=== PATIENT | female | born 1960 | race Caucasian/White ===

== ENCOUNTER 2017-09-07 23:05 | Emergency (ER) | payer BC ==
[2017-09-07] MEDS ORDERED: TDAP ADULT 0.5 ML INJ (BOOSTRIX) IM ONE (23:38)
--- NOTE | 2017-09-07 23:38 | EDPHY ---
General Time Seen by Provider: 09/07/17 23:19 Narrative: CHIEF COMPLAINT: Cat bite, cat scratch HISTORY OF PRESENT ILLNESS: Patient presents to the hospital with complaints of cat bites and scratches. She was attempting to break up a fight between 2 cats, 1 of whom belong to a neighbor. The other is unknown to heard directly but reportedly is a house cat of someone a history. She reports being bit in the right hand, scratched or bit in the left hand, and scratched her by in the left calf. Moderately painful. No numbness. No tingling. No difficulty bending or straightening the fingers on the affected areas. This happened less than 30 min ago. Her tetanus is due to be updated later this year. No other associated complaints or modifying factors. REVIEW OF SYSTEMS: Ten systems reviewed and are negative unless otherwise noted in the HPI PCP: Dr. Naima Banda SPECIALISTS: None PAST MEDICAL HISTORY: Uncomplicated medical history. SOCIAL HISTORY: Nonsmoker. Lives here independently with her spouse. FAMILY HISTORY: Noncontributory EXAMINATION General Appearance: Alert, no distress Head: normocephalic, atraumatic Cardiovascular: Regular rate. Symmetric radial pulses 2+. Good signs of perfusion with brisk cap refill in both hands. Neurological: A&O, nonfocal, sensory symmetric. Interossei strength symmetric. No wrist drop Skin: Warm and dry, no rash. Multiple small punctures to the dorsum of the right hand and wrist, left calf and distal popliteal fossa. There is a 1.5 cm v -shaped laceration to the dorsum of the left hand overlying the 2nd metacarpal. No exposure of the extensor tendon. No lacerations to the fingers. No pulsatile bleeding. No foreign body. Extremities: Tenderness in the areas of puncture/laceration. Good signs of perfusion with no flexor or extensor injuries on the left hand or right hand. Full range of motion without deficit. No wrist drop. Excellent strength of the interossei. Psychiatric: Mood and affect normal DIFFERENTIAL DIAGNOSES: Including but not limited to cat bite, cat scratch MDM: 11:30 p.m. Cat bites and scratches to the dorsum of the right hand and wrist, dorsum of the left hand and posterior aspect of the left lower extremity from the popliteal to the calf. This happened less than 30 min ago. Her tetanus is scheduled to be updated later this year, thus we will do a now. She will need empiric antibiotic coverage. I have anesthetize larger wounds and will proceed with copious irrigation. 11:50 p.m. Patient re-evaluated. Her wounds have been irrigated with Betadine and sterile saline. We discussed empiric Augmentin coverage which was started here. We discussed daily wound care. We also discussed that the wound on the dorsum left hand will be loosely closed with Steri-Strips, as she will likely incur infection if we close the wound tightly. We discussed follow up in 48-72 hours for wound re-evaluation and the consideration of possible delayed closure. Likely will not need delayed closure. She is comfortable this plan and discharged home stable condition. SUPERVISION: Patient was independently examined, but I discussed the case with my secondary supervising physician Dr. Peña - History Smoking Status: Never smoked - Objective Vital Signs: Initial Vital Signs Temperature (C) 98.2 F 09/07/17 23:10 Heart Rate 78 09/07/17 23:10 Respiratory Rate 16 09/07/17 23:10 Blood Pressure 132/84 H 09/07/17 23:10 O2 Sat (%) 94 09/07/17 23:10 O2 Delivery Mode Room Air Allergies/Adverse Reactions: No Known Allergies Allergy (Unverified 09/07/17 23:13) Home Medications: Medication Instructions Recorded Amoxicillin/Clavulanate Pot 875 mg PO BID #13 tab 09/08/17 [Augmentin 875 MG TAB (*)] Medications Given: Discontinued Medications Amoxicillin/Clavulanate Potassium (Augmentin 875mg) 875 mg PO EDNOW ONE PRN Reason: Protocol Stop: 09/07/17 23:44 Last Admin: 09/07/17 23:47 Dose: 875 mg Diphtheria/Tetanus/Acell Pertussis (Boostrix) 0.5 ml IM .ONCE ONE Stop: 09/07/17 23:39 Last Admin: 09/07/17 23:47 Dose: 0.5 ml Departure - Departure Disposition: Home, Routine, Self-Care Clinical Impression: Cat bite of left hand Qualifiers: Encounter type: initial encounter Qualified Code(s): S61.452A - Open bite of left hand, initial encounter Cat bite of right hand Qualifiers: Encounter type: initial encounter Qualified Code(s): S61.451A - Open bite of right hand, initial encounter Cat bite of left lower leg Qualifiers: Encounter type: initial encounter Qualified Code(s): S81.852A - Open bite, left lower leg, initial encounter Condition: Good Instructions: Amoxicillin/Clavulanate Potassium (By mouth), Animal Bite (ED) Additional Instructions: 1. Daily wound care with a antibacterial wash twice daily 2. Contact primary care physician Saturday morning for re-evaluation at 48-72 hours 3. Return here for any redness, streaking, fever, difficulty bending or straightening the hands in the affected areas Referrals: Naima Banda MD [Primary Care Provider] - As per Instructions Prescriptions: Amoxicillin/Clavulanate Pot [Augmentin 875 MG TAB (*)] 875 mg PO BID #13 tab
[2017-09-07] MEDS ORDERED: AMOXICILLIN/CLAVULANATE POT 875/125 MG TAB PO ONE (23:43)
[2017-09-08 00:24] VITALS: BP 124/76
== END 2017-09-08 00:23 | disposition home or self-care (01) ==
DX: S61.451A Open bite of right hand, initial encounter (principal); S61.452A Open bite of left hand, initial encounter; S81.852A Open bite, left lower leg, initial encounter; Z23 Encounter for immunization; W55.01XA Bitten by cat, initial encounter; Y99.8 Other external cause status; Y93.89 Activity, other specified